=== PATIENT | male | born 1985 | race African-American/Black ===

== ENCOUNTER 2017-01-01 20:21 | Emergency (ER) | payer OTHER ==
[~2017-01-01] VITALS: Ht 195.6 cm; Wt 149.0 kg
[~2017-01-01 20:21] MED LIST: FAMO1TAB36 PO; MEDR4PAK3 PO; ZYRT10TA12 PO
[2017-01-01 20:23] VITALS: BP 172/111; PULSE 89; RESP 16; TEMP 99.5; O2SAT 97
--- NOTE | 2017-01-01 20:28 | PD ---
Physical Exam Time Seen by Provider: 20:25 Narrative 31 y/o male c/o cough, hoarse voice, congestion. Started as a tickle in the throat 1.5 weeks ago. VSS seen at triage desk. Awaiting bed placement. Data Data Last Documented VS Vital Signs Date Time Temp Pulse Resp B/P Pulse Ox O2 Delivery O2 Flow Rate FiO2 01/01/17 20:23 99.5 89 16 172/111 97 MDM Medical Record Reviewed: Yes Supervised Visit with EDUARDO: Yes Dell Agarwal Jan 01, 2017 20:27
[2017-01-01] MEDS ORDERED: EYEDRO (21:18)
[2017-01-01] MEDS ORDERED: ANALCRE5 (21:18)
[2017-01-01] MEDS ORDERED: AMOX500T PO (22:19)
[2017-01-01] MEDS ORDERED: PRED-503 PO (22:19)
--- NOTE | 2017-01-01 22:26 | PD ---
HPI Chief Complaint: Cold / Flu Symptoms Time Seen by Provider: 22:19 Travel History International Travel<30 days: No Contact w/Intl Traveler<30days: No Traveled to known affect area: No History of Present Illness HPI 31-year-old black male presents to emergency department with a 1.5 week history of fever and chills, headache, sore throat, congestion, slight cough, injury or malaise. He denies any shortness of breath or wheezing. No nausea vomiting or diarrhea. No abdominal pain or urinary symptoms. Symptoms are moderate. No alleviating factors. He states that the symptoms of gotten much worse the last 2 days. PFSH Past Medical History Narrative Medical Right knee injury Diminished Hearing: No Tetanus Vaccination: < 5 Years Influenza Vaccination: No Past Surgical History Narrative Surgical Right knee arthroscopy Social History Alcohol Use: No Tobacco Use: No Substance Use: No Allergies-Medications (Allergen,Severity, Reaction): Coded Allergies: No Known Allergies (Unverified , 01/01/17) Reported Meds & Prescriptions Reported Meds & Active Scripts Active Reported Analgesic Creme/Aloe (Trolamine Salicylate) 10 % Cre Eye Drops 0.012-0.2 % (Naphazoline-Polyethylene Glycol) Unknown Strength Todd Unknown Dose Review of Systems Except as stated in HPI: all other systems reviewed are Neg Physical Exam Narrative GENERAL: Well-developed, well-nourished in no acute distress. Nontoxic appearing. HEAD: Normocephalic, atraumatic. EYES: Pupils equal round and reactive. Extraocular motions intact. No scleral icterus. No injection or drainage. ENT: TMs clear without erythema. The external auditory canals clear. Nose: clear . Posterior pharynx is erythematous and moist. Positive tonsillar edema but no exudate. Uvula midline. Airway patent. NECK: Trachea midline.Supple, nontender, moves head freely. No central bony tenderness or spasm. CARDIOVASCULAR: Regular rate and rhythm without murmurs, gallops, or rubs. RESPIRATORY: Clear to auscultation. Breath sounds equal bilaterally. No wheezes , rales, or rhonchi. GASTROINTESTINAL: Abdomen soft, non-tender, nondistended. No hepato-splenomegaly , or palpable masses. No guarding. EXTREMITIES: No clubbing, cyanosis, or edema. No joint tenderness, effusion, or edema noted. BACK: Nontender without deformity or crepitance. No flank tenderness. Data Data Last Documented VS Vital Signs Date Time Temp Pulse Resp B/P Pulse Ox O2 Delivery O2 Flow Rate FiO2 01/01/17 20:29 16 01/01/17 20:23 99.5 89 172/111 97 Orders Amoxicillin (Trimox) (01/01/17 22:30) Prednisone (Deltasone) (01/01/17 22:30) MDM Medical Decision Making Medical Screen Exam Complete: Yes Emergency Medical Condition: Yes Medical Record Reviewed: Yes Differential Diagnosis MDM: High Differential diagnoses: Strep throat, viral pharyngitis, URI Narrative Course Patient's given 1 g of Amoxil and 60 mg of prednisone by mouth. This is acute pharyngitis Diagnosis Primary Impression: Acute pharyngitis Qualified Code: J02.9 - Acute pharyngitis, unspecified etiology Patient Instructions: General Instructions Departure Forms: School Release, Please excuse from school until (free text option): No school or work 3 days. Tests/Procedures Additional Instructions: Rest. Force fluids. Saltwater gargles. Tylenol and Advil. Chloraseptic [place] Cepastat lozenge. Amoxicillin and prednisone. Follow-up with a primary care doctor in one week. Return to the ER if any problems. Med/Other Pt SpecificInfo: Prescription(s) given Scripts Prednisone (Deltasone)20 Mg Tab20 Mg PO TID #15 TAB Prov:Edward Luna MD 01/01/17 Amoxicillin 500 Mg Tab1,000 Mg PO BID #40 TAB Prov:Edward Luna MD 01/01/17 Disposition: 01 DISCHARGE HOME Condition: Stable Juan Johnson Jan 01, 2017 22:26
[2017-01-01] MEDS ORDERED: predniSONE 20 MG TAB PO ONE (22:30)
[2017-01-01] MEDS ORDERED: AMOXICILLIN (TRIHYDRATE) 500 MG CAP PO ONE (22:30)
== END 2017-01-01 22:57 | disposition home or self-care (01) ==
LOC: NEPK 20:21
DX: J02.9 Acute pharyngitis, unspecified (principal)
CPT/HCPCS: 99283; J7512

== ENCOUNTER 2018-02-08 22:46 | Emergency (ER) | payer OTHER ==
[~2018-02-08 22:46] MED LIST changes: +AMOX500T PO; +ANALCRE5; +EYEDRO; -FAMO1TAB36 PO; -MEDR4PAK3 PO; +PRED-503 PO; -ZYRT10TA12 PO
[2018-02-08 22:54] VITALS: BP 206/95; PULSE 119; RESP 18; TEMP 102.8; O2SAT 98
[2018-02-08] MEDS ORDERED: SODIUM CHLOR 0.9% 1000 ML INJ 1,000 ML IV ONE (23:15)
[2018-02-08] MEDS ORDERED: SODIUM CHLORIDE 0.9% FLUSH 10 ML FLUSH IVF PRN (23:15)
[2018-02-08] MEDS ORDERED: methylPREDNISolone SOD SUCC 125 MG/2 ML VIAL IV PUSH ONE (23:15)
[2018-02-08] MEDS ORDERED: IBUPROFEN 800 MG TAB PO ONE (23:15)
--- NOTE | 2018-02-08 23:20 | PD ---
HPI Chief Complaint: Fever Time Seen by Provider: 23:06 Travel History International Travel<30 days: No Contact w/Intl Traveler<30days: No Traveled to known affect area: No History of Present Illness HPI Patient is a 32-year-old male presented into the emergency department for for evaluation of fevers and a sore throat. Patient states his throat started hurting 1 week ago, the fever started shortly thereafter. He has been taking TheraFlu with no improvement, his last dose was at 1815 this evening. Patient reports a decreased appetite and decreased oral intake. He denies any dysphasia or drooling. Patient reports a history of strep pharyngitis. Symptom onset was gradual, symptoms are moderate in nature. Patient reports the pain is a 6 out of 10, sore and aching, constant. PFSH Past Medical History Medical History: Denies Significant Hx Diminished Hearing: No Hypertension: Yes Immunizations Current: Yes Social History Alcohol Use: Yes Tobacco Use: No Substance Use: No Allergies-Medications (Allergen,Severity, Reaction): Coded Allergies: No Known Allergies (Unverified Adverse Reaction, Unknown, 02/08/18) Reported Meds & Prescriptions Reported Meds & Active Scripts Active Deltasone (Prednisone) 20 Mg Tab 20 Mg PO TID Amoxicillin 500 Mg Tab 1,000 Mg PO BID Reported Analgesic Creme/Aloe (Trolamine Salicylate) 10 % Cre Eye Drops 0.012-0.2 % (Naphazoline-Polyethylene Glycol) Unknown Strength Todd Unknown Dose Review of Systems Except as stated in HPI: all other systems reviewed are Neg General / Constitutional: Positive: Fever, Chills HENT: Positive: Sore Throat Gastrointestinal: Positive: Loss of Appetite, No: Nausea, Vomiting, Abdominal Pain, Dysphagia Musculoskeletal: No: Myalgias Physical Exam Narrative GENERAL: Well-developed, well-nourished, alert -Russian male. Presenting in no acute distress. SKIN: Warm and dry. HEAD: Atraumatic. Normocephalic. EYES: Pupils equal and round. No scleral icterus. No injection or drainage. ENT: No nasal bleeding or discharge. Mucous membranes pink and moist. 2+ bilateral tonsillar hypertrophy, exudates and erythema noted. Uvula is midline , airway is patent, no stridor noted. NECK: Trachea midline. No JVD. CARDIOVASCULAR: Regular rate and rhythm. RESPIRATORY: No accessory muscle use. Clear to auscultation. Breath sounds equal bilaterally. GASTROINTESTINAL: Abdomen soft, non-tender, nondistended. Hepatic and splenic margins not palpable. MUSCULOSKELETAL: Extremities without clubbing, cyanosis, or edema. No obvious deformities. NEUROLOGICAL: Awake and alert. No obvious cranial nerve deficits. Motor grossly within normal limits. Five out of 5 muscle strength in the arms and legs. Normal speech. PSYCHIATRIC: Appropriate mood and affect; insight and judgment normal. Data Data Last Documented VS Vital Signs Date Time Temp Pulse Resp B/P (MAP) Pulse Ox O2 Delivery O2 Flow Rate FiO2 02/09/18 00:26 101.0 109 20 159/93 (115) 97 Orders Orders Complete Blood Count With Diff (02/08/18 23:14) Basic Metabolic Panel (Bmp) (02/08/18 23:14) Group A Rapid Strep Screen (02/08/18 23:14) Iv Access Insert/Monitor (02/08/18 23:14) Oximetry (02/08/18 23:14) Ibuprofen (Motrin) (02/08/18 23:15) Sodium Chloride 0.9% Flush (Ns Flush) (02/08/18 23:15) Sodium Chlor 0.9% 1000 Ml Inj (Ns 1000 M (02/08/18 23:15) Methylprednisolone So Succ Inj (Solumedr (02/08/18 23:15) Penicillin G Benzathine Inj (Bicillin L- (02/09/18 00:30) Amoxicillin (Trimox) (02/09/18 00:45) Sodium Chlor 0.9% 1000 Ml Inj (Ns 1000 M (02/09/18 00:45) Labs Laboratory Tests Test 02/08/18 23:30 White Blood Count 20.1 TH/MM3 Red Blood Count 5.71 MIL/MM3 Hemoglobin 16.3 GM/DL Hematocrit 48.5 % Mean Corpuscular Volume 84.8 FL Mean Corpuscular Hemoglobin 28.5 PG Mean Corpuscular Hemoglobin Concent 33.6 % Red Cell Distribution Width 13.7 % Platelet Count 281 TH/MM3 Mean Platelet Volume 7.5 FL Neutrophils (%) (Auto) 80.0 % Lymphocytes (%) (Auto) 13.8 % Monocytes (%) (Auto) 5.8 % Eosinophils (%) (Auto) 0.1 % Basophils (%) (Auto) 0.3 % Neutrophils # (Auto) 16.1 TH/MM3 Lymphocytes # (Auto) 2.8 TH/MM3 Monocytes # (Auto) 1.2 TH/MM3 Eosinophils # (Auto) 0.0 TH/MM3 Basophils # (Auto) 0.1 TH/MM3 CBC Comment DIFF FINAL Differential Comment Blood Urea Nitrogen 11 MG/DL Creatinine 1.40 MG/DL Random Glucose 98 MG/DL Calcium Level 9.0 MG/DL Sodium Level 138 MEQ/L Potassium Level 4.5 MEQ/L Chloride Level 102 MEQ/L Carbon Dioxide Level 27.4 MEQ/L Anion Gap 9 MEQ/L Estimat Glomerular Filtration Rate 71 ML/MIN MDM Medical Decision Making Medical Screen Exam Complete: Yes Emergency Medical Condition: Yes Interpretation(s) Vital Signs Date Time Temp Pulse Resp B/P (MAP) Pulse Ox O2 Delivery O2 Flow Rate FiO2 02/09/18 00:26 101.0 109 20 159/93 (115) 97 02/08/18 22:54 102.8 119 18 206/95 (132) 98 Laboratory Tests Test 02/08/18 23:30 White Blood Count 20.1 TH/MM3 Red Blood Count 5.71 MIL/MM3 Hemoglobin 16.3 GM/DL Hematocrit 48.5 % Mean Corpuscular Volume 84.8 FL Mean Corpuscular Hemoglobin 28.5 PG Mean Corpuscular Hemoglobin Concent 33.6 % Red Cell Distribution Width 13.7 % Platelet Count 281 TH/MM3 Mean Platelet Volume 7.5 FL Neutrophils (%) (Auto) 80.0 % Lymphocytes (%) (Auto) 13.8 % Monocytes (%) (Auto) 5.8 % Eosinophils (%) (Auto) 0.1 % Basophils (%) (Auto) 0.3 % Neutrophils # (Auto) 16.1 TH/MM3 Lymphocytes # (Auto) 2.8 TH/MM3 Monocytes # (Auto) 1.2 TH/MM3 Eosinophils # (Auto) 0.0 TH/MM3 Basophils # (Auto) 0.1 TH/MM3 CBC Comment DIFF FINAL Differential Comment Blood Urea Nitrogen 11 MG/DL Creatinine 1.40 MG/DL Random Glucose 98 MG/DL Calcium Level 9.0 MG/DL Sodium Level 138 MEQ/L Potassium Level 4.5 MEQ/L Chloride Level 102 MEQ/L Carbon Dioxide Level 27.4 MEQ/L Anion Gap 9 MEQ/L Estimat Glomerular Filtration Rate 71 ML/MIN Differential Diagnosis Strep pharyngitis versus tonsillitis versus abscess versus viral syndrome versus other Narrative Course Patient is a 32-year-old male presenting for evaluation of sore throat and fevers. Physical exam appears consistent with strep pharyngitis. Patient is otherwise well-appearing and healthy. Strep swab was ordered and pending. Patient will also be given IV fluids, Solu-Medrol and ibuprofen. Will obtain a CBC and a basic metabolic panel. Patient was tachycardic on arrival and febrile. Will reassess. CBC with a white count of 20 Strep screen is positive Chemistry is unremarkable Patient was given an additional liter of IV fluids. His heart rate trended down to 101, his fever has also resolved. Please see nurse's notes. Patient resting comfortably. He has been given amoxicillin orally. Patient will be discharged home. Patient was also seen and evaluated by my attending physician. Please see his documentation. Patient was advised to return to emergency department immediately for any new or worsening symptoms. He was advised to follow-up with his primary doctor. He was strongly advised to take ibuprofen every 6-8 hours for fevers and body aches. Patient verbalized understanding of instructions. Patient stable for discharge. Diagnosis Primary Impression: Strep pharyngitis Referrals: Primary Care Physician 2 days Patient Instructions: General Instructions, Pharyngitis (ED) Additional Instructions: Complete full course of antibiotics as prescribed Follow-up with your primary doctor Increase oral fluid intake Return to emergency department for any new or worsening symptoms Take ibuprofen every 6-8 hours for fever and body aches as directed Med/Other Pt SpecificInfo: Prescription(s) given Scripts Ibuprofen (Ibuprofen) 800 Mg Tab 800 MG PO Q6HR Y for PAIN, #40 TAB 0 Refills Prov: Yael Maxwell 02/09/18 Amoxicillin (Amoxicillin) 875 Mg Tab 875 MG PO BID for Infection, #20 TAB 0 Refills Prov: Yael Maxwell 02/09/18 Disposition: 01 DISCHARGE HOME Condition: Stable Yael Maxwell February 08, 2018 23:20
[2018-02-09 00:04] LABS: AUTOMATED NEUTROPHIL # 16.1 TH/MM3 (1.8-7.7); BASOPHIL # 0.1 TH/MM3 (0-0.2); BASOPHIL % 0.3 % (0.0-2.0); EOSINOPHIL % 0.1 % (0.0-4.0); HEMATOCRIT 48.5 % (39.0-51.0); HEMOGLOBIN 16.3 GM/DL (13.0-17.0); LYMPH % 13.8 % (9.0-44.0); LYMPHOCYTE # 2.8 TH/MM3 (1.0-4.8); MEAN CELL VOLUME 84.8 FL (80.0-100.0); MEAN CORPUSCULAR HEMOGLOBIN 28.5 PG (27.0-34.0); MEAN CORPUSCULAR HGB CONC 33.6 % (32.0-36.0); MEAN PLATELET VOLUME 7.5 FL (7.0-11.0); MONO % 5.8 % (0.0-8.0); MONOCYTE # 1.2 TH/MM3 (0-0.9); PLATELET COUNT 281 TH/MM3 (150-450); RED BLOOD COUNT 5.71 MIL/MM3 (4.50-5.90); RED CELL DISTRIBUTION WIDTH 13.7 % (11.6-17.2); WHITE BLOOD COUNT 20.1 TH/MM3 (4.0-11.0)
--- NOTE | 2018-02-09 00:25 | PD ---
Data Data Last Documented VS Vital Signs Date Time Temp Pulse Resp B/P (MAP) Pulse Ox O2 Delivery O2 Flow Rate FiO2 02/09/18 03:11 100 18 98 02/09/18 00:26 101.0 Orders Orders Complete Blood Count With Diff (02/08/18 23:14) Basic Metabolic Panel (Bmp) (02/08/18 23:14) Group A Rapid Strep Screen (02/08/18 23:14) Iv Access Insert/Monitor (02/08/18 23:14) Oximetry (02/08/18 23:14) Ibuprofen (Motrin) (02/08/18 23:15) Sodium Chloride 0.9% Flush (Ns Flush) (02/08/18 23:15) Sodium Chlor 0.9% 1000 Ml Inj (Ns 1000 M (02/08/18 23:15) Methylprednisolone So Succ Inj (Solumedr (02/08/18 23:15) Penicillin G Benzathine Inj (Bicillin L- (02/09/18 00:30) Amoxicillin (Trimox) (02/09/18 00:45) Sodium Chlor 0.9% 1000 Ml Inj (Ns 1000 M (02/09/18 00:45) Ed Discharge Order (02/09/18 03:02) Labs Laboratory Tests Test 02/08/18 23:30 White Blood Count 20.1 TH/MM3 Red Blood Count 5.71 MIL/MM3 Hemoglobin 16.3 GM/DL Hematocrit 48.5 % Mean Corpuscular Volume 84.8 FL Mean Corpuscular Hemoglobin 28.5 PG Mean Corpuscular Hemoglobin Concent 33.6 % Red Cell Distribution Width 13.7 % Platelet Count 281 TH/MM3 Mean Platelet Volume 7.5 FL Neutrophils (%) (Auto) 80.0 % Lymphocytes (%) (Auto) 13.8 % Monocytes (%) (Auto) 5.8 % Eosinophils (%) (Auto) 0.1 % Basophils (%) (Auto) 0.3 % Neutrophils # (Auto) 16.1 TH/MM3 Lymphocytes # (Auto) 2.8 TH/MM3 Monocytes # (Auto) 1.2 TH/MM3 Eosinophils # (Auto) 0.0 TH/MM3 Basophils # (Auto) 0.1 TH/MM3 CBC Comment DIFF FINAL Differential Comment Blood Urea Nitrogen 11 MG/DL Creatinine 1.40 MG/DL Random Glucose 98 MG/DL Calcium Level 9.0 MG/DL Sodium Level 138 MEQ/L Potassium Level 4.5 MEQ/L Chloride Level 102 MEQ/L Carbon Dioxide Level 27.4 MEQ/L Anion Gap 9 MEQ/L Estimat Glomerular Filtration Rate 71 ML/MIN [facility] Medical Record Reviewed: Yes Supervised Visit with EDUARDO: Yes Narrative Course I, Dr. Cesar, have reviewed the advance practice practitioner's documentation and am in agreement, met with the patient face to face, made the diagnosis, and the medical decision making was done by me. *My assessment and Findings: The patient has streptococcal pharyngitis based on exam. Penicillin and Solu- Medrol given here. There is a fairly significant leukocytosis of 20,000. This patient is 32 years old and otherwise healthy I do not believe we need to admit the patient due to leukocytosis when we know the patient has streptococcal pharyngitis and does not have a peritonsillar abscess. Diagnosis Primary Impression: Acute pharyngitis Qualified Codes: J02.9 - Acute pharyngitis, unspecified Additional Impression: Strep pharyngitis Med/Other Pt SpecificInfo: No Change to Meds Scripts Ibuprofen (Ibuprofen) 800 Mg Tab 800 MG PO Q6HR Y for PAIN, #40 TAB 0 Refills Prov: Yael Maxwell 02/09/18 Amoxicillin (Amoxicillin) 875 Mg Tab 875 MG PO BID for Infection, #20 TAB 0 Refills Prov: Yael Maxwell 02/09/18 Disposition: 01 DISCHARGE HOME Condition: Stable Tim Cesar MD February 09, 2018 00:25
[2018-02-09 00:26] VITALS: BP 159/93; PULSE 109; RESP 20; TEMP 101; O2SAT 97
[2018-02-09] MEDS ORDERED: PENICILLIN G BENZATHINE 1,200,000 UNITS/2 ML SYRINGE IM ONE (00:30)
[2018-02-09 00:34] LABS: BICARBONATE 27.4 MEQ/L (21.0-32.0); CREATININE 1.4 MG/DL (0.60-1.30)
[2018-02-09] MEDS ORDERED: SODIUM CHLOR 0.9% 1000 ML INJ 1,000 ML IV ONE (00:45)
[2018-02-09] MEDS ORDERED: AMOXICILLIN 875 MG TAB PO ONE (00:45)
[2018-02-09] MEDS ORDERED: IBUP1TAB7 PO (03:02)
[2018-02-09] MEDS ORDERED: AMOX875T PO (03:02)
== END 2018-02-09 03:30 | disposition home or self-care (01) ==
LOC: NEPD 22:46
DX: J02.0 Streptococcal pharyngitis (principal); R50.9 Fever, unspecified; B95.0 Streptococcus, group A, as the cause of diseases classified elsewhere; I10 Essential (primary) hypertension
CPT/HCPCS: 80048; 85025; 87880; 96361; 96374; 99284; J2930; J7030